=== PATIENT | male | born 1995 | race Caucasian/White ===

== ENCOUNTER 2017-01-13 18:08 | Emergency (ER) | payer OTHER ==
--- NOTE | 2017-01-13 19:12 | ED NURSING NOTES ---
Clinical Report - Nurses [facility] [address] [place] [address] 01/13/2017 18:13 [id number] TRI[facility] Triage time 18:28. Acuity: LEVEL 3. Chief Complaint: PAIN TO RIGHT EYE. 18:28 01/13/17. 18:28 01/13/17. Alert. No acute distress. SEPSIS SCREEN: Sepsis Screen. Negative (no infection suspected/documented). VISUAL ACUITY: Visual acuity performed without corrective lenses: left eye 20/15; right eye 20/25 minus one letter; both eyes 20/15. --18:34 Jony Kumar R.N. 18:28 01/13/17. BP: 132/69. HR: 70. RR: 18. O2 saturation: 100% on room air. Temp: 97.8 F (oral). Pain level now: 0/10. --18:34 Jony Kumar R.N. Weight: 90.7 kg stated. Height/Length: 75 inches Per Patient. BMI: 25. --18:29 Jony Kumar R.N. Medications None. --18:31 Jony Kumar R.N. Medication/allergy information source: the patient. --18:34 Jony Kumar R.N. Allergies None. --18:31 Jony Kumar R.N. History Arrived by private vehicle. Historian: patient. Accompanied by family. Primary physician (Steve Stafford). 18:28 01/13/17. He may have sustained an injury. 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 He has had photophobia. He has had moderate right-sided blurred vision. 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 PAST MEDICAL HX: Immunizations: up-to-date. SOCIAL HX: Never smoker. No alcohol use or drug use. No infectious disease exposure. ABUSE ASSESSMENT: No report of abuse. FALL RISK ASSESSMENT: Fall risk assessment completed. No fall risk identified. NUTRITIONAL RISK ASSESSMENT: The nutritional risk assessment revealed no deficiencies. FUNCTIONAL ASSESSMENT: Functional assessment: no impairments noted. LEARNING NEEDS ASSESSMENT: The learning needs assessment revealed no barriers. SKIN INTEGRITY ASSESSMENT: Skin integrity risk assessment completed. No skin integrity risk identified. --18:34 Jony Kumar R.N. PROBLEMS: no known problems. ADDITIONAL SURGERIES: no known surgeries. Assessment 18:28 01/13/17. --18:34 Jony Kumar R.N. Interventions 18:28 01/13/17. 18:01/13/17. ID and allergy band on patient. To treatment room. --18:34 Jony Kumar R.N. PHYSICAL ASSESSMENT 18:28 01/13/17. Ambulatory to room. GENERAL / NEURO / PSYCH: Alert. Appears in no acute distress. HEENT: No facial asymmetry noted. SKIN: Skin is warm and dry. --18:31 Jony uKmar R.N. NURSING PROGRESS NOTES 18:28 01/13/17. The plan of care for this patient has been created. Patient gowned. Head of bed elevated. Reassurance given. Two patient identifiers checked. Call light placed in reach. Side rails up x 2. Bed placed in lowest position. Brakes of bed on. --18:31 Jony Kumar R.N. 18:39 01/13/2017 Proparacaine Eye Drops 2 drop given. Given in the right eye. Allergies verified and confirmed 5 rights. --18:39 Jony Kumar R.N. DISPOSITION / DISCHARGE 19:15 01/13/17. Condition at departure: improved. The goals identified in the patient's plan of care were met. No learning barriers present. Discharge instructions provided and reviewed with the patient. Reviewed warnings. Reviewed medication(s). Treatments reviewed. Patient verbalized understanding. Written instructions provided in Andorran. The patient was discharged by the physician recruiting assistant. He was discharged home and accompanied by family. He left the Emergency Department ambulatory and via private vehicle. Family member driving. FALL RISK ASSESSMENT: Fall risk assessment completed. No fall risk identified. --19:15 Jony Kumar R.N. 19:14 01/13/17. BP: 123/72. HR: 79. RR: 16. O2 saturation: 99% on room air. Temp: 98.2 F (oral). --19:15 Jony Kumar R.N. 19:15 01/13/17. Departure time: 19:Jan 13 2017. --19:15 Jony Kumar R.N. Locked/Released at 01/13/2017 19:18 by Jony Kumar R.N.
--- NOTE | 2017-01-13 19:12 | ED NURSING NOTES ---
Clinical Report - Nurses [facility] [address] [place] [address] 01/13/2017 18:13 [id number] TRI[facility] Triage time 18:28. Acuity: LEVEL 3. Chief Complaint: PAIN TO RIGHT EYE. 18:28 01/13/17. 18:28 01/13/17. Alert. No acute distress. SEPSIS SCREEN: Sepsis Screen. Negative (no infection suspected/documented). VISUAL ACUITY: Visual acuity performed without corrective lenses: left eye 20/15; right eye 20/25 minus one letter; both eyes 20/15. --18:34 Jony Kumar R.N. 18:28 01/13/17. BP: 132/69. HR: 70. RR: 18. O2 saturation: 100% on room air. Temp: 97.8 F (oral). Pain level now: 0/10. --18:34 Jony Kumar R.N. Weight: 90.7 kg stated. Height/Length: 75 inches Per Patient. BMI: 25. --18:29 Jony Kumar R.N. Medications None. --18:31 Jony Kumar R.N. Medication/allergy information source: the patient. --18:34 Jony Kumar R.N. Allergies None. --18:31 Jony Kumar R.N. History Arrived by private vehicle. Historian: patient. Accompanied by family. Primary physician (Steve Stafford). 18:28 01/13/17. He may have sustained an injury. 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 He has had photophobia. He has had moderate right-sided blurred vision. 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 PAST MEDICAL HX: Immunizations: up-to-date. SOCIAL HX: Never smoker. No alcohol use or drug use. No infectious disease exposure. ABUSE ASSESSMENT: No report of abuse. FALL RISK ASSESSMENT: Fall risk assessment completed. No fall risk identified. NUTRITIONAL RISK ASSESSMENT: The nutritional risk assessment revealed no deficiencies. FUNCTIONAL ASSESSMENT: Functional assessment: no impairments noted. LEARNING NEEDS ASSESSMENT: The learning needs assessment revealed no barriers. SKIN INTEGRITY ASSESSMENT: Skin integrity risk assessment completed. No skin integrity risk identified. --18:34 Jony Kumar R.N. PROBLEMS: no known problems. ADDITIONAL SURGERIES: no known surgeries. Assessment 18:28 01/13/17. --18:34 Jony Kumar R.N. Interventions 18:28 01/13/17. 18:01/13/17. ID and allergy band on patient. To treatment room. --18:34 Jony Kumar R.N. PHYSICAL ASSESSMENT 18:28 01/13/17. Ambulatory to room. GENERAL / NEURO / PSYCH: Alert. Appears in no acute distress. HEENT: No facial asymmetry noted. SKIN: Skin is warm and dry. --18:31 Jony Kumar R.N. NURSING PROGRESS NOTES 18:28 01/13/17. The plan of care for this patient has been created. Patient gowned. Head of bed elevated. Reassurance given. Two patient identifiers checked. Call light placed in reach. Side rails up x 2. Bed placed in lowest position. Brakes of bed on. --18:31 Jony Kumar R.N. 18:39 01/13/2017 Proparacaine Eye Drops 2 drop given. Given in the right eye. Allergies verified and confirmed 5 rights. --18:39 Jony Kumar R.N. DISPOSITION / DISCHARGE 19:15 01/13/17. Condition at departure: improved. The goals identified in the patient's plan of care were met. No learning barriers present. Discharge instructions provided and reviewed with the patient. Reviewed warnings. Reviewed medication(s). Treatments reviewed. Patient verbalized understanding. Written instructions provided in Mosotho. The patient was discharged by the physician assistant hvac mechanic. He was discharged home and accompanied by family. He left the Emergency Department ambulatory and via private vehicle. Family member driving. FALL RISK ASSESSMENT: Fall risk assessment completed. No fall risk identified. --19:15 Jony Kumar R.N. 19:14 01/13/17. BP: 123/72. HR: 79. RR: 16. O2 saturation: 99% on room air. Temp: 98.2 F (oral). --19:15 Jony Kumar R.N. 19:15 01/13/17. Departure time: 19:Jan 13 2017. --19:15 Jony Kumar R.N. Locked/Released at 01/13/2017 19:18 by Jony Kumar R.N.
--- NOTE | 2017-01-13 19:12 | ED CLINICAL REPORT ---
Clinical Report - Physicians/Mid Levels [facility] [address] [place] [address] 01/13/2017 18:13 Patient: LIANA GIBSON Time Seen: 20:10 Jan 13 2017. Arrived- By private vehicle. Historian- patient. HISTORY OF PRESENT ILLNESS Chief Complaint: EYE PAIN and IRRITATION. This started just prior to arrival, involves the right eye, is characterized as mild and is still present. This occurred at home. Eye discomfort and irritation. Blurred vision. No double vision or decreased vision. ( patient reports being outside, and a mc possibly brushing him in the right eye. Denies wearing contacts or corrective months. He denies any prior trauma or injury to the righ blurred vision, increase tearing from the right eye.). REVIEW OF SYSTEMS No fever. All systems otherwise negative, except as recorded above. SOCIAL HISTORY Never smoker. No alcohol use or drug use. ADDITIONAL NOTES The nursing notes have been reviewed. PHYSICAL EXAM Vital Signs: 01/13/2017 18:28 BP: 132/69. HR: 70. RR: 18. O2 saturation: 100%. Temp: 97.8 F. Pain level now: 0/10. Appearance: Alert. Rt Eye: Pupil regular. Pupil not constricted. No eyelid edema or erythema, corneal abrasion, fluorescein dye uptake or EOM palsy. No foreign body under the eyelid. Eyes: Visual acuity noted- see nurse's notes. Right eyelid everted for examination. Corneas appear normal to inspection. Pupils equal, round and reactive to light. Accommodation normal. Neck: Neck supple. CVS: Normal heart rate and rhythm. Heart sounds normal. Respiratory: No respiratory distress. Skin: No rash. Neuro: Oriented X 3. Mood/affect normal. PROGRESS AND PROCEDURES Course of Care: left eye 20/15; right eye 20/25 minus one letter; both eyes 20/15 no signs of dye uptake. No signs of any injury. Good EOM. No signs of foreign object. No signs of erythema. Tears only with no discharge. Patient with no signs of other injury, will be prominence, cover with antibiotics. Patient with visual acuity as noted above. Patient is stable. Symptoms better. Patient/family counseled. Disposition: Discharged. Condition: good. CLINICAL IMPRESSION Small corneal abrasion to the right eye. INSTRUCTIONS Prescription Medications: Polytrim ophthalmic solution: Instill 1 drop into affected eye every 3 hours while awake (max 6 doses per day) for 1 week. Dispense five (5) mL. No refills. Substitution is permissible. OTC Medications: Take OTC medications according to label instructions. Available over the counter. Acetaminophen (available over the counter): take according to label instructions. Motrin (available over the counter): take according to label instructions. Follow-up: Follow up with your doctor in three days as needed. (Electronically signed by Dina Milton P.A.-C 01/13/2017 20:13)
--- NOTE | 2017-01-13 19:12 | ED CLINICAL REPORT ---
Clinical Report - Physicians/Mid Levels [facility] [address] [place] [address] 01/13/2017 18:13 Patient: LIANA GIBSON Time Seen: 20:10 Jan 13 2017. Arrived- By private vehicle. Historian- patient. HISTORY OF PRESENT ILLNESS Chief Complaint: EYE PAIN and IRRITATION. This started just prior to arrival, involves the right eye, is characterized as mild and is still present. This occurred at home. Eye discomfort and irritation. Blurred vision. No double vision or decreased vision. ( patient reports being outside, and a mc possibly brushing him in the right eye. Denies wearing contacts or corrective months. He denies any prior trauma or injury to the righ blurred vision, increase tearing from the right eye.). REVIEW OF SYSTEMS No fever. All systems otherwise negative, except as recorded above. SOCIAL HISTORY Never smoker. No alcohol use or drug use. ADDITIONAL NOTES The nursing notes have been reviewed. PHYSICAL EXAM Vital Signs: 01/13/2017 18:28 BP: 132/69. HR: 70. RR: 18. O2 saturation: 100%. Temp: 97.8 F. Pain level now: 0/10. Appearance: Alert. Rt Eye: Pupil regular. Pupil not constricted. No eyelid edema or erythema, corneal abrasion, fluorescein dye uptake or EOM palsy. No foreign body under the eyelid. Eyes: Visual acuity noted- see nurse's notes. Right eyelid everted for examination. Corneas appear normal to inspection. Pupils equal, round and reactive to light. Accommodation normal. Neck: Neck supple. CVS: Normal heart rate and rhythm. Heart sounds normal. Respiratory: No respiratory distress. Skin: No rash. Neuro: Oriented X 3. Mood/affect normal. PROGRESS AND PROCEDURES Course of Care: left eye 20/15; right eye 20/25 minus one letter; both eyes 20/15 no signs of dye uptake. No signs of any injury. Good EOM. No signs of foreign object. No signs of erythema. Tears only with no discharge. Patient with no signs of other injury, will be prominence, cover with antibiotics. Patient with visual acuity as noted above. Patient is stable. Symptoms better. Patient/family counseled. Disposition: Discharged. Condition: good. CLINICAL IMPRESSION Small corneal abrasion to the right eye. INSTRUCTIONS Prescription Medications: Polytrim ophthalmic solution: Instill 1 drop into affected eye every 3 hours while awake (max 6 doses per day) for 1 week. Dispense five (5) mL. No refills. Substitution is permissible. OTC Medications: Take OTC medications according to label instructions. Available over the counter. Acetaminophen (available over the counter): take according to label instructions. Motrin (available over the counter): take according to label instructions. Follow-up: Follow up with your doctor in three days as needed. (Electronically signed by Dina Milton P.A.-C 01/13/2017 20:13)
--- NOTE | 2017-01-13 19:12 | ED ORDER SUMMARY ---
..... Patient: LIANA GIBSON OrderSheet [facility] VisitID: [id number] [address] [address] 21y, M Registration Date/Time: 01/13/2017 ORDER SHEET Weight: 90.7 kg (stated) Allergies: None GENERAL ORDERS: MEDICATION ORDERS: Proparacaine Eye Drops (Solution 0.5 %) 2 drops (right eye) (18:39 01/13/2017 Ayo Browning.Wilton per protocol) (18:39 Ayo R.N.) IV FLUIDS: ORDER SHEET NOTES: [Electronically signed by Jony Kumar R.N. (19:18 01/13/2017)] [Electronically signed by Dina Milton P.A.-C (20:12 01/13/2017)] [Electronically locked/signed by Jony Kumar R.N. (19:18 01/13/2017)]
--- NOTE | 2017-01-13 19:12 | ED ORDER SUMMARY ---
..... Patient: LIANA GIBSON OrderSheet [facility] VisitID: [id number] [address] [place] [place] [address] 21y, M Registration Date/Time: 01/13/2017 ORDER SHEET Weight: 90.7 kg (stated) Allergies: None GENERAL ORDERS: MEDICATION ORDERS: Proparacaine Eye Drops (Solution 0.5 %) 2 drops (right eye) (18:39 01/13/2017 Ayo Browning.Wilton per protocol) (18:39 Ayo R.N.) IV FLUIDS: ORDER SHEET NOTES: [Electronically signed by Jony Kumar R.N. (19:18 01/13/2017)] [Electronically signed by Dina Milton P.A.-C (20:12 01/13/2017)] [Electronically locked/signed by Jony Kumar R.N. (19:18 01/13/2017)]
--- NOTE | 2017-01-13 20:13 | ED MED RECONCILIATION SUMMARY ---
Patient: LIANA GIBSON Medication Reconciliation Report [facility] VisitID: [id number] [address] [place] [address] 21y, M Registration Date/Time: 01/13/2017 Weight: 90.7 kg Height/Length: 75 in. BMI: 25.0 ALLERGIES: None The patient's Home Medications are listed below: NONE. The source(s) of the original Home Medication information: patient The following Medications were given to the patient in the Emergency Department: Proparacaine [Eye Drops] Eye Drops 2 drop, administered: 01/13/2017 6:39:00 PM The following Medications were prescribed to the patient: Take OTC medications according to label instructions. Available over the counter. -- Dina Milton, P.A.-C Acetaminophen (available over the counter): take according to label instructions. -- Dina Milton, P.A.-C Motrin (available over the counter): take according to label instructions. -- Dina Milton, P.A.-C Polytrim ophthalmic solution: Instill 1 drop into affected eye every 3 hours while awake (max 6 doses per day) for 1 week. Dispense five (5) mL. No refills. Substitution is permissible. -- Dina Milton, P.A.-C
--- NOTE | 2017-01-13 20:13 | ED MED RECONCILIATION SUMMARY ---
Patient: LIANA GIBSON Medication Reconciliation Report [facility] VisitID: [id number] [address] [place] [address] 21y, M Registration Date/Time: 01/13/2017 Weight: 90.7 kg Height/Length: 75 in. BMI: 25.0 ALLERGIES: None The patient's Home Medications are listed below: NONE. The source(s) of the original Home Medication information: patient The following Medications were given to the patient in the Emergency Department: Proparacaine [Eye Drops] Eye Drops 2 drop, administered: 01/13/2017 6:39:00 PM The following Medications were prescribed to the patient: Take OTC medications according to label instructions. Available over the counter. -- Dina Milton, P.A.-C Acetaminophen (available over the counter): take according to label instructions. -- Dina Milton, P.A.-C Motrin (available over the counter): take according to label instructions. -- Dina Milton, P.A.-C Polytrim ophthalmic solution: Instill 1 drop into affected eye every 3 hours while awake (max 6 doses per day) for 1 week. Dispense five (5) mL. No refills. Substitution is permissible. -- Dina Milton, P.A.-C
--- NOTE | 2017-01-13 20:13 | ED DISCHARGE INSTRUCTIONS ---
Patient: LIANA GIBSON General Instructions [facility] VisitID: [id number] [place] [address] 21y, M Registration Date/Time: 01/13/2017 Small corneal abrasion to the right eye. INSTRUCTIONS Prescription Medications: Polytrim ophthalmic solution: Instill 1 drop into affected eye every 3 hours while awake (max 6 doses per day) for 1 week. Dispense five (5) mL. No refills. Substitution is permissible. OTC Medications: Take OTC medications according to label instructions. Available over the counter. Acetaminophen (available over the counter): take according to label instructions. Motrin (available over the counter): take according to label instructions. Follow-up: Follow up with your doctor in three days as needed. ADDITIONAL INFORMATION Corneal Abrasion The cornea is the clear part in the front of the eye. This sensitive area is very painful when injured. There may be tearing and your vision may be blurry until healing occurs. You may be sensitive to light. This part of the body heals quickly. You can expect the pain to go away within 24-48 hours. If the abrasion is large or deep, your doctor may apply an eye patch, although this is not always done. An antibiotic ointment or eye drops may also be used to prevent infection. Numbing drops may be used to relieve the pain temporarily so that your eyes can be examined. However, these drops cannot be prescribed for home use because that would slow down the healing process. Also, if you cant feel your eye, there is a chance of accidentally injuring your eye further without knowing it. Home Care: A cold pack (ice in a plastic bag, wrapped in a towel) may be applied over the eye (or eyepatch) for 20 minutes at a time, to reduce pain. You may use acetaminophen (Tylenol) or ibuprofen (Motrin, Advil) to control pain, unless another pain medicine was prescribed. [NOTE: If you have chronic liver or kidney disease or ever had a stomach ulcer or GI bleeding, talk with your doctor before using these medicines.] Rest your eyes and do not read until symptoms are gone. If you use contact lenses, do not wear them until all symptoms are gone. If your vision is affected by the corneal abrasion or if an eyepatch was applied, DO NOT DRIVE a motor vehicle or operate machinery until all symptoms are gone. Otherwise, you would have trouble judging distances with only one eye. If your eyes are sensitive to light, try wearing sunglasses, or stay indoors, until symptoms go away. Follow Up as advised by our staff. Serious abrasions may be referred to an floral department specialist (electronic lab technician). If no patch was used but the pain continues for more than 48 hours, you should have another exam. Return to this facility or contact the referral doctor to arrange this. If your eye was patched and if you were asked to remove the patch yourself, see your doctor or return to this facility if your pain is still present after the patch is removed. If you were given a return appointment for patch removal and re-exam, do not miss this. It could be harmful if the patch remains in place longer than advised. Get Prompt Medical Attention if any of the following occur: Increasing eye pain or pain that does not improve after 24 hours Discharge from the eye Increasing redness of the eye or swelling of the eyelids Your vision gets worse You have been given the following additional information: Corneal Abrasion (Electronically signed by Dina Milton P.A.-C 01/13/2017 20:13)
--- NOTE | 2017-01-13 20:13 | ED MAR SUMMARY ---
..... Medication Administration Record [facility] [address] [place] [address] Patient: LIANA GIBSON Visit ID: [id number] 21y, M Weight: 90.7 kg Height/Length: 75 in BMI: 25 ALLERGIES: None Given 18:39 01/13/2017 Jony Kumar R.N. Medication Administered: PROPARACAINE [EYE DROPS], Dose: 2 drop Eye Drops. Medication Ordered: Proparacaine Eye Drops (Solution 0.5 %) 2 drops (right eye).
--- NOTE | 2017-01-13 20:13 | ED DISCHARGE INSTRUCTIONS ---
Patient: LIANA GIBSON General Instructions [facility] VisitID: [id number] [place] [address] 21y, M Registration Date/Time: 01/13/2017 Small corneal abrasion to the right eye. INSTRUCTIONS Prescription Medications: Polytrim ophthalmic solution: Instill 1 drop into affected eye every 3 hours while awake (max 6 doses per day) for 1 week. Dispense five (5) mL. No refills. Substitution is permissible. OTC Medications: Take OTC medications according to label instructions. Available over the counter. Acetaminophen (available over the counter): take according to label instructions. Motrin (available over the counter): take according to label instructions. Follow-up: Follow up with your doctor in three days as needed. ADDITIONAL INFORMATION Corneal Abrasion The cornea is the clear part in the front of the eye. This sensitive area is very painful when injured. There may be tearing and your vision may be blurry until healing occurs. You may be sensitive to light. This part of the body heals quickly. You can expect the pain to go away within 24-48 hours. If the abrasion is large or deep, your doctor may apply an eye patch, although this is not always done. An antibiotic ointment or eye drops may also be used to prevent infection. Numbing drops may be used to relieve the pain temporarily so that your eyes can be examined. However, these drops cannot be prescribed for home use because that would slow down the healing process. Also, if you cant feel your eye, there is a chance of accidentally injuring your eye further without knowing it. Home Care: A cold pack (ice in a plastic bag, wrapped in a towel) may be applied over the eye (or eyepatch) for 20 minutes at a time, to reduce pain. You may use acetaminophen (Tylenol) or ibuprofen (Motrin, Advil) to control pain, unless another pain medicine was prescribed. [NOTE: If you have chronic liver or kidney disease or ever had a stomach ulcer or GI bleeding, talk with your doctor before using these medicines.] Rest your eyes and do not read until symptoms are gone. If you use contact lenses, do not wear them until all symptoms are gone. If your vision is affected by the corneal abrasion or if an eyepatch was applied, DO NOT DRIVE a motor vehicle or operate machinery until all symptoms are gone. Otherwise, you would have trouble judging distances with only one eye. If your eyes are sensitive to light, try wearing sunglasses, or stay indoors, until symptoms go away. Follow Up as advised by our staff. Serious abrasions may be referred to an clin application specialist (survey researcher). If no patch was used but the pain continues for more than 48 hours, you should have another exam. Return to this facility or contact the referral doctor to arrange this. If your eye was patched and if you were asked to remove the patch yourself, see your doctor or return to this facility if your pain is still present after the patch is removed. If you were given a return appointment for patch removal and re-exam, do not miss this. It could be harmful if the patch remains in place longer than advised. Get Prompt Medical Attention if any of the following occur: Increasing eye pain or pain that does not improve after 24 hours Discharge from the eye Increasing redness of the eye or swelling of the eyelids Your vision gets worse You have been given the following additional information: Corneal Abrasion (Electronically signed by Dina Milton P.A.-C 01/13/2017 20:13)
--- NOTE | 2017-01-13 20:13 | ED MAR SUMMARY ---
..... Medication Administration Record [facility] [address] [place] [address] Patient: LIANA GIBSON Visit ID: [id number] 21y, M Weight: 90.7 kg Height/Length: 75 in BMI: 25 ALLERGIES: None Given 18:39 01/13/2017 Jony Kumar R.N. Medication Administered: PROPARACAINE [EYE DROPS], Dose: 2 drop Eye Drops. Medication Ordered: Proparacaine Eye Drops (Solution 0.5 %) 2 drops (right eye).
== END 2017-01-13 19:15 | disposition home or self-care (01) ==
LOC: ED SRH 18:08
DX: S05.01XA Injury of conjunctiva and corneal abrasion without foreign body, right eye, initial encounter (principal); X58.XXXA Exposure to other specified factors, initial encounter; Y93.9 Activity, unspecified; Y92.019 Unspecified place in single-family (private) house as the place of occurrence of the external cause; Y99.9 Unspecified external cause status